=== PATIENT | male | born 1985 | race Caucasian/White ===

== ENCOUNTER → 2023-05-04 11:18 | Outpatient (CLI) | payer BC, SELFPAY ==
--- NOTE | ~2023-05-04 | XR_ITS ---
EXAM: XR thoracic spine 3V DATE: 05/04/2023 11:53 HISTORY: thoracic spine pain . COMPARISON: None available. FINDINGS: Decreased mineralization. Mild scoliosis. Vertebral body alignment intact. Vertebral body h eights preserved. No disc space narrowing. No traumatic malalignment or fracture. Visualized lung par enchyma is clear. IMPRESSION: Mild thoracal lumbar scoliosis. Osteopenia. Reviewed, dictated and finalized at location K.
== END ==
PROVIDERS: PCP Family Medicine; Visit Provider Family Medicine
DX: M54.6 Pain in thoracic spine (principal); M41.9 Scoliosis, unspecified; M85.88 Other specified disorders of bone density and structure, other site
CPT/HCPCS: 72072

== ENCOUNTER 2023-09-26 18:18 | Emergency (ER) | payer BC, SELFPAY ==
[2023-09-26 18:27] VITALS: BP 149/89; PULSE 84; RESP 18; TEMP 36.3; O2SAT 98
--- NOTE | 2023-09-26 18:37 | ED.URI ---
HPI - URI/Sore Throat General Chief Complaint: Upper Respiratory Infection Stated Complaint: Congestion Time Seen by Provider: 09/26/23 18:37 Source: patient Mode of arrival: ambulatory Limitations: no limitations History of Present Illness HPI Narrative: 37-year-old male presents with complaint of nasal congestion, sinus pressure, postnasal drainage, irritated throat for 3 days. Afebrile. No cough or shortness of breath. Denies nausea vomiting diarrhea. Patient taking [id number] medication to treat congestion without relief. All systems reviewed and negative except as noted above. Related Data Home Medications Medication Instructions Recorded Confirmed clonazepam 0.5 mg tablet mg 09/26/23 fenofibrate 160 mg tablet mg 09/26/23 losartan 100 mg tablet mg 09/26/23 omeprazole 20 mg tablet,delayed 20 mg PO DAILY 09/26/23 09/26/23 release venlafaxine 150 mg mg PO 09/26/23 capsule,extended release 24 hr Allergies Allergy/AdvReac Type Severity Reaction Status Date / Time No Known Allergies Allergy Mild Verified 09/26/23 18:28 Review of Systems Review of Systems: CONSTITUTIONAL: Denies fever, chills, or sweats. reports fatigue. EYES: Denies visual changes, redness, or discharge. ENT: Reports rhinorrhea, congestion, Sinus pressure, sore throat. Denies otalgia. CARDIOVASCULAR: Denies chest pain, palpitations, or edema. RESPIRATORY: Denies cough or dyspnea. GASTROINTESTINAL: Denies abdominal pain, nausea, vomiting, or diarrhea. GENITOURINARY: Denies dysuria or hematuria. SKIN: Denies rash or itching. MUSCULOSKELETAL: Denies back pain, joint pain, or myalgia. NEUROLOGIC: Denies headache, numbness, or weakness. PSYCHIATRIC: Denies anxiety or depression. All other systems reviewed are negative, except as documented in HPI. PMFSH Comments At time of signature, agree with nursing past medical, surgical, social and family history. There is no relevant family history pertinent to the presenting complaint. Exam Narrative: GENERAL: This is a well-nourished, well-developed patient, in no apparent distress. HEAD: normocephalic, atraumatic. EYES: PERRL. Sclera clear/white. Vision is grossly intact. EARS: External ears normal, auditory canals clear and without drainage, TMs normal without perforation. Hearing grossly intact. NOSE: External nose normal with moderate congestion, purulent nasal drainage, erythema and swelling to bilateral nares. THROAT: Mucous membranes moist, Postnasal drainage with mild erythema. No swelling or exudates. NECK: Neck supple, non-tender without lymphadenopathy, masses or thyromegaly. CARDIOVASCULAR: Regular rate and rhythm without murmurs, gallops, or rubs. RESPIRATORY: Clear to auscultation. Breath sounds equal bilaterally. No wheezes, rales, or rhonchi. SKIN: warm, Dry, intact with no suspicious lesions or rash, good texture and turgor. NEURO: awake, alert, and oriented to person, place and time. There were no obvious focal neurologic abnormalities. EXTREMITIES: No joint tenderness, effusion, or edema noted. Course Course Level of Care: Express Care Visit Vital Signs Vital signs: Vital Signs Temperature 36.3 C L 09/26/23 18: Pulse Rate 84 09/26/23 18:27 Respiratory Rate 18 09/26/23 18:27 Blood Pressure 149/89 H 09/26/23 18:27 Pulse Oximetry 98 09/26/23 18:27 Oxygen Delivery Autopap 09/26/23 18:27 Temperature 36.3 C L 09/26/23 18:27 Pulse Rate 84 09/26/23 18:27 Respiratory Rate 18 09/26/23 18:27 Blood Pressure 149/89 H 09/26/23 18:27 Pulse Oximetry 98 09/26/23 18:27 Oxygen Delivery Autopap 09/26/23 18:27 Reviewed MDM - URI/Sore Throat MDM Narrative Medical decision making narrative: negative COVID and influenza. Patient well-appearing, nontoxic. Lungs clear to auscultation. Will treat for viral URI. Patient is aware of diagnosis, understands and agrees to treatment plan. Anticipatory guidance g
== END 2023-09-26 19:19 | disposition home or self-care (01) ==
PROVIDERS: Emergency Provider Nurse Practitioner Family; PCP Family Medicine
DX: J06.9 Acute upper respiratory infection, unspecified (principal); Z20.822 Contact with and (suspected) exposure to COVID-19; E78.00 Pure hypercholesterolemia, unspecified; I10 Essential (primary) hypertension
CPT/HCPCS: 87426; 87804; 99213; G0463